=== PATIENT | male | born 1970 | race African-American/Black ===

== ENCOUNTER 2020-04-30 18:37 | Inpatient (IN) | payer OTHER, MEDICAID ==
[~2020-04-30] VITALS: Ht 198.1 cm; Wt 131.1 kg
[2020-04-30 19:05] LABS: BASOPHILS % 1.1 % (0.0-2.0); EOSINOPHILS % 2.2 % (0.0-5.0); HEMATOCRIT. 44.8 % (42.0-52.0); HEMOGLOBIN. 15.1 g/dL (14.0-18.0); LYMPHOCYTES % 27.7 % (20.0-50.0); MEAN CORPUSCULAR HEMOGLOBIN 30.4 pg (28.0-32.0); MEAN CORPUSCULAR VOLUME 89.9 fL (80.0-94.0); MEAN PLATELET VOLUME 7.8 fl (7.4-10.4); PLATELET 266 x1000/uL (130-400); RED BLOOD CELL COUNT 4.98 mill/uL (4.7-6.1); RED CELL DISTRIBUTION WIDTH 14.4 % (11.6-14.6)
[2020-04-30 19:12] LABS: CHLORIDE 105 mEq/L (98-107)
[2020-04-30 19:14] LABS: PROTHROMBIN TIME 10.2 sec (9.6-11.0)
[2020-04-30 19:16] LABS: ETHANOL BLOOD < 10 mg/dL
[2020-04-30 19:19] LABS: LDL CHOLESTEROL 105 mg/dL (5-100)
[2020-04-30] MEDS ORDERED: ASPIRIN 325MG EC TABLET PO ONE (20:30)
[2020-05-01] VITALS (7 sets, daily range): BP systolic 145–181; BP diastolic 78–111
[2020-05-01] MEDS ORDERED: ACETAMINOPHEN 325MG TABLET PO PRN (01:15)
[2020-05-01] MEDS ORDERED: LORAZEPAM 2MG/ML CPJ IV PRN (01:15)
[2020-05-01] MEDS ORDERED: DEXTROSE 50% WATER 50ML SYRINGE IV PRN (01:15)
[2020-05-01] MEDS: LOSARTAN POTASSIUM 50 MG TABLET PO SCH ×2 (02:54→08:37)
[2020-05-01] MEDS: HYDRALAZINE HCL 50MG TABLET PO SCH ×2 (02:54→08:38)
[2020-05-01 06:30] LABS: EOSINOPHILS % 2.4 % (0.0-5.0); HEMATOCRIT. 44.3 % (42.0-52.0); HEMOGLOBIN. 14.9 g/dL (14.0-18.0); LYMPHOCYTES % 31.5 % (20.0-50.0); MEAN CORPUSCULAR HEMOGLOBIN 30.3 pg (28.0-32.0); MEAN CORPUSCULAR VOLUME 90.1 fL (80.0-94.0); MONOCYTES % 9.8 % (2.0-8.0); NEUTROPHILS % 55.3 % (40.0-76.0); PLATELET 254 x1000/uL (130-400); RED BLOOD CELL COUNT 4.91 mill/uL (4.7-6.1); RED CELL DISTRIBUTION WIDTH 14.6 % (11.6-14.6)
[2020-05-01 06:30] LABS: CHLORIDE 105 mEq/L (98-107)
[2020-05-01] MEDS: BLOOD SUGAR DIAGNOSTIC STRIP TEST SCH ×2 (07:21→12:20)
[2020-05-01] MEDS: INSULIN LISPRO 100 UNITS/ML SUBCUT SCH ×2 (07:21→12:50)
[2020-05-01] MEDS ORDERED: SODIUM CHLORIDE 0.45% 1,000 ML IV SCH (08:00)
[2020-05-01] MEDS ORDERED: PHENYTOIN SODIUM EXTENDED 100MG CAPSULE PO SCH (09:00)
[2020-05-01] MEDS ORDERED: LEVETIRACETAM 500MG TABLET PO SCH (09:00)
[2020-05-01] MEDS ORDERED: PHEN100C4 MT (13:24)
[2020-05-01] MEDS ORDERED: KEPP500 MT (13:24)
[2020-05-01] MEDS ORDERED: LOSA50TA3 PO (13:24)
[2020-05-01] MEDS ORDERED: HYDR-4135 MT (13:24)
[2020-05-01] MEDS ORDERED: BLOO1KIT74 TP (14:17)
== END 2020-05-01 17:00 | disposition home or self-care (01) | DRG 53 ==
LOC: ER 18:42 → MICUSO 21:42 → EDBEDREQ 21:48 → EDBEDREQSVC 21:48 → EDBEDREQTM 21:48 → 6WST 05-01 00:14
PROVIDERS: ADMIT Internal Medicine; ATTEND Internal Medicine
DX: G40.909 Epilepsy, unspecified, not intractable, without status epilepticus (principal); E11.65 Type 2 diabetes mellitus with hyperglycemia; E66.01 Morbid (severe) obesity due to excess calories; I16.1 Hypertensive emergency; I10 Essential (primary) hypertension; D72.829 Elevated white blood cell count, unspecified; Z79.899 Other long term (current) drug therapy; Z91.14 Patient's other noncompliance with medication regimen; Z91.19 Patient's noncompliance with other medical treatment and regimen; Z68.33 Body mass index [BMI] 33.0-33.9, adult
CPT/HCPCS: 36415; 70551; 71045; 80048; 80053; 80320; 82542; 82962; 83036; 83605; 83721; 84484; 85025; 93005; 93306; 93880; 99285; G0480